=== PATIENT | female | born 1955 | race Caucasian/White ===

== ENCOUNTER 2019-08-17 08:30 | Inpatient (IN) ==
--- NOTE | 2019-08-02 10:15 | PAT Medication Instructions ---
Medication Instructions Date of Service August 02, 2019 Home Medications albuterol sulfate 2 puff INHALATION QID PRN allopurinol 300 mg PO QAM atorvastatin 10 mg PO Q2D chlorthalidone 50 mg PO QAM dulaglutide [Trulicity] 0.75 mg SUBCUT WK glipizide 10 mg PO QAM levothyroxine 200 mcg PO QAM lisinopril 5 mg PO QAM metoprolol succinate 50 mg PO QAM omeprazole 40 mg PO QAM theophylline [Lg-24] 200 mg PO QAM Continue as directed dulaglutide [Trulicity] 0.75 mg SUBCUT WK atorvastatin 10 mg PO Q2D DO NOT take the morning of surgery chlorthalidone 50 mg PO QAM glipizide 10 mg PO QAM lisinopril 5 mg PO QAM Take morning of surgery With a small sip of water, OTHERWISE NOTHING TO EAT OR DRINK AFTER MIDNIGHT: albuterol sulfate 2 puff INHALATION QID PRN (use if needed; please bring with you to hospital day of surgery if possible) allopurinol 300 mg PO QAM levothyroxine 200 mcg PO QAM metoprolol succinate 50 mg PO QAM omeprazole 40 mg PO QAM theophylline [Lg-24] 200 mg PO QAM Take evening before surgery albuterol sulfate 2 puff INHALATION QID PRN (if needed) Other Notes If you have any questions please call us at [phone] or [phone] or [phone] or [phone]
--- NOTE | 2019-08-02 13:24 | Anesthesiology Consultation ---
Date of Service August 02, 2019 Assessment & Plan (1) Encounter for pre-operative examination: Per PAT assessment on 08/01: Travel screen- Lives in [facility]. Only travel to [facility]. No known COVID-19 positive contacts. No history of COVID-19 testing. No current COVID-19 related symptoms. Per patient, surgeon has them scheduled for COVID-19 testing on 08/12 (surgeon-ordered preop protocol). Awaiting results. - Check [facility] AM DOS Chart Review Chart Review: Acceptable Risk for Surgery (pending COVID test) and Patient seen in Pre Admission Testing Teaching & Discussion Pre-Anesthesia Teaching/Discussion Notes: Instructed NPO after midnight before surgery,except medications with 15 cc of water. Medication instructions provided according to the PAT guidelines. History Surgery Operation Date: 08/17/19 08:50 Proposed Procedures p Right Total Knee Revision - Braydon Tejada MD Height/Weight Height: 5 ft 4.5 in Weight: 116 kg Allergies Allergy/AdvReac Type Severity Reaction Status Date / Time rofecoxib Allergy Severe leg Verified 08/02/19 13:33 swelling Cephalosporins Allergy Intermediate Unknown Verified 07/31/19 16:01 propoxyphene Allergy Mild hallucinati Verified 08/02/19 13:33 ons Medications Home Medications Medication Instructions Recorded Confirmed Last Taken albuterol sulfate 2 puff INHALATION QID PRN 07/31/19 07/31/19 Unknown allopurinol 300 mg PO QAM 07/31/19 07/31/19 Unknown atorvastatin 10 mg PO Q2D 07/31/19 07/31/19 Unknown chlorthalidone 50 mg PO QAM 07/31/19 07/31/19 Unknown dulaglutide [Trulicity] 1.5 mg SUBCUT WK 07/31/19 08/02/19 Unknown glipizide 10 mg PO QAM 07/31/19 07/31/19 Unknown levothyroxine 200 mcg PO QAM 07/31/19 07/31/19 Unknown lisinopril 5 mg PO QAM 07/31/19 07/31/19 Unknown metoprolol succinate 50 mg PO QAM 07/31/19 07/31/19 Unknown omeprazole 40 mg PO QAM 07/31/19 07/31/19 Unknown theophylline [Lg-24] 200 mg PO QAM 07/31/19 07/31/19 Unknown Past Medical History Medical History Asthma rare inhaler use/stable Cancer right breast s/p partial mastectomy (no chemo/no XRT) Diabetes mellitus, type 2 injectable + oral Esophageal ulcer hx years ago GERD (gastroesophageal reflux disease) controlled Gout Hyperlipidemia Hypertension Hypothyroidism Morbid obesity Osteoarthritis Exercise / Class Metabolic Activity III < 4 Walking/Shop/Light housework Past Surgical History Surgical History History of cardiac cath 2001-NO STENTS History of cholecystectomy History of colonoscopy History of dilatation and curettage X 2 History of esophagogastroduodenoscopy (EGD) History of mastectomy RIGHT PARTIAL 2008 History of total knee replacement R/L Past Anesthesia History No Hx of Anesthesia Complications and No Family Hx of Anesthesia Complications (except asthma related complications to surgery for mother) History of PONV No Hx of PONV and No Hx of Motion Sickness Social History Smoking Status: Never smoker Do You Dip or Chew Tobacco: No Hx Alcohol Use: No Hx Substance Use: No Review of Systems Refllux controlled. Patient denies chest pain, shortness of breath, cough, wheezing, palpitations. Physical Exam Vital Signs VITALS BP 126/78 P 84 TEMP 98.6 SP02 96%RA RESP 18 PHYSICAL Full neck and c-spine range of motion. Full TMJ range of motion. TMD 3.5 finger breaths Mallampati Score 1 Dentition: partial/several missing teeth on lower, implant on upper front right side, + cap Lungs: clear throughout to auscultation Cardiac: regular rate and rhythm, no murmurs noted Spine: normal Carotid arteries: negative bruit Extremities: no edema Testing Laboratory Results 08/02/19 13:57 08/02/19 13:58 PT 10.9 Seconds (9.0-12.0) 08/02/19 13:57 INR 1.0 (0.9-1.1) 08/02/19 13:57 APTT 27.1 Seconds (21.0-31.0) 08/02/19 13:57 Hemoglobin A1c 7.5 % (4.5-5.6) H 08/02/19 13:57 Blood Type A Positive 08/02/19 13:57 Antibody Screen NEGATIVE 08/02/19 13:57 Electrocardiogram Date: 08/02/19 NSR at 79bpm. Low voltage QRS. Cannot rule out anterior infarct (possible anterior infarct dating back to 09/16/14 EKG from [facility] scanned into [facility], patient had DSE 10/08/15 without inducible ischemia) Chest X-Ray Date: 08/02/19 The cardiomediastinal silhouette is unremarkable noting atherosclerotic calcification of the thoracic aorta. Chronic interstitial thickening is similar to previous. There is no pneumothorax. The skeletal structures are osteopenic. The bony thorax appears intact. Degenerative change is noted in the thoracic spine. IMPRESSION: No active disease in the chest. Stress Test Date: 10/08/15 Type: DSE The dobutamine stress echocardiographic examination is normal without ECG or ECHO evidence of inducible ischemia. No chest pain was reported with this test. 89% MPHR. EF 73%. Mild AV sclerosis.
--- NOTE | 2019-08-02 14:31 | XRay Report ---
TWO VIEW CHEST CLINICAL HISTORY: Preoperative examination. FINDINGS: PA and lateral chest radiographs are compared to study dated 08/05/2005. The cardiomediastina l silhouette is unremarkable noting atherosclerotic calcification of the thoracic aorta. Chronic inte rstitial thickening is similar to previous. There is no pneumothorax. The skeletal structures are ost eopenic. The bony thorax appears intact. Degenerative change is noted in the thoracic spine. IMPRESSION: No active disease in the chest. ACT 112: Negative or not required by law. Electronically signed by: Jaswinder John M.D. 08/02/2019 2:29 PM
[2019-08-02 14:52] LABS: Basophils # (auto) 0.01 K/uL (0-0.2); Basophils % (auto) 0.1 %; Eosinophils # (auto) 0.18 K/uL (0-0.5); Eosinophils % (auto) 2.1 %; Hematocrit (blood only) 40.5 % (37-47); Immature Granulocytes # (auto) 0.02 K/uL (0.00-0.02); Immature Granulocytes % (auto) 0.2 %; Lymphocytes # (auto) 2.25 K/uL (1.2-3.4); Lymphocytes % (auto) 26.1 %; Mean Corpuscular Hemoglobin 28.8 pg (25-34); Mean Corpuscular Hgb Conc 32.1 g/dL (32-36); Mean Corpuscular Volume 89.6 fL (80-100); Mean Platelet Volume 10.5 fL (7.4-10.4); Monocytes # (auto) 0.44 K/uL (0.11-0.59); Monocytes % (auto) 5.1 %; Neutrophils # (auto) 5.73 K/uL (1.4-6.5); Neutrophils % (auto) 66.4 %; Platelet Count 233 K/uL (130-400); RDW Coefficient of Variation 13.7 % (11.5-14.5); RDW Standard Deviation 44.6 fL (36.4-46.3); Red Blood Count 4.52 M/uL (4.2-5.4); White Blood Count 8.63 K/uL (4.8-10.8)
[2019-08-02 15:10] LABS: Partial Thromboplastin Time 27.1 Seconds (21.0-31.0); Prothrombin Time 10.9 Seconds (9.0-12.0)
[2019-08-02 15:21] LABS: Estimated Average Glucose 169 mg/dl; Hemoglobin A1C 7.5 % (4.5-5.6)
[2019-08-02 15:22] LABS: BUN Creatinine Ratio 27.3 (10-20); Calcium 9.5 mg/dl (8.5-10.1); Creatinine Clr Calc Pharmacy 69.4 ml/min; Est GFR (African American) 66.8; Est GFR (Non-African American) 57.7; Potassium 3.7 mmol/L (3.5-5.1)
[2019-08-02 15:26] LABS: C Reactive Protein 1.09 mg/dl (0-0.29)
--- NOTE | 2019-08-02 17:09 | Electrocardiogram Report ---
Test Reason : Blood Pressure : / mmHG Vent. Rate : 079 BPM Atrial Rate : 079 BPM P-R Int : 188 ms QRS Dur : 084 ms QT Int : 396 ms P-R-T Axes : 064 061 076 degrees QTc Int : 454 ms Normal sinus rhythm Low voltage QRS Cannot rule out Anterior infarct , age undetermined Abnormal ECG When compared with ECG of 05-AUG-2005 10:04, QRS voltage has decreased Minimal criteria for Anterior infarct are now Present Nonspecific T wave abnormality no longer evident in Inferior leads Confirmed by Elliott Martinez ([id number]) on 08/02/2019 5:09:29 PM Referred By: Braydon Tejada Confirmed By:Elliott Martinez
--- NOTE | 2019-08-10 14:05 | History and Physical Report ---
DATE OF ADMISSION: 08/17/2019 CHIEF COMPLAINT: Bilateral knee pain and discomfort, right side greater than left. HISTORY OF PRESENT ILLNESS: The patient is a 64-year-old female now 16 years out from a right knee replacement 14 years out from the left. She has done pretty well until about a year ago when she started having pain and discomfort in the right knee, more than the left. No known injuries. She had no fevers or signs of infection. Over the past several months, her pain has just gotten worse. We had actually scheduled for knee revision, but was canceled due to the COVID epidemic. Over the past several weeks, her pain has only gotten worse. She has started up pain. She has difficulty going up and down steps. A little bit more thigh discomfort than the tibia discomfort. Very minimal swelling. She has been through extensive conservative treatment without relief. X-rays suggest loosening and osteolysis and patient now presents for revision surgery. Of note, the patient's sed rate and C-reactive protein were just slightly elevated. We did aspirate her knee and it showed no signs of inflammation or inflammatory process. The lab results are still pending. PAST MEDICAL HISTORY: 1. Asthma. 2. Hypertension. 3. Gastroesophageal reflux disease. 4. Diabetes x10 years. 5. Obesity with BMI of 43. 6. Precancerous breast lesion. PAST SURGICAL HISTORY: Include: 1. Right total knee replacement done 09/13/2003. 2. Left knee replacement done on 08/13/2005. 3. Cholecystectomy. 4. Right partial breast mastectomy. ALLERGIES: PENICILLIN, CEPHALOSPORINS. EXACT REACTION IS UNCLEAR. SHE SAYS CEPHALOSPORINS CAUSE HER EYES TO BE YELLOW. CURRENT MEDICINES: Include: 1. Januvia. 2. Metformin. 3. Theophylline. 4. Metoprolol. 5. Allopurinol. 6. Lisinopril. 7. Chlorthalidone. 8. Levothyroxine. SOCIAL HISTORY: A 64-year-old female. She is . She is a retired teacher. She used to work at [employer]. Does not smoke or drink. FAMILY HISTORY: Noncontributory. REVIEW OF SYSTEMS: Significant for diabetes. Denies any chest pain or shortness of breath. No history of DVT or PE. No known bleeding problems. PHYSICAL EXAMINATION: GENERAL: Shows a pleasant, middle-aged female. Looks to be in pretty good health. HEENT: Benign. NECK: Supple, no lymphadenopathy. LUNGS: Clear to auscultation. HEART: Has a regular rate and rhythm. ABDOMEN: Soft, nontender, nondistended. EXTREMITIES: Grossly neurovascularly intact except as follows: Examination of both knees reveals the patient walks with a bit of a waddling gait. Examination of the right knee reveals a well-healed incision. She has a slight varus alignment to her knee. Very small if any detectable knee effusion. No warmth. Range of motion is 0 to about 110. She can do a straight leg raise. No varus or valgus instability. Examination of the left knee reveals well-healed incision. Neutral alignment. Minimal knee effusion. Range of motion is 0-120. No instability. X-RAYS: X-rays of both knees reveal bilateral left posterior stabilized total knee arthroplasties. There is significant osteolysis around the tibial tray medially and laterally in both knees. Certainly appears to be lucency around the femoral component on the lateral film on the right knee. Some degree of fragmentation of the patella. ASSESSMENT: A 64-year-old white female, 16 years out from right knee replacement, 14 years out from the left with bilateral knee pain and discomfort, mild swelling consistent with a polyethylene wear and likely aseptic loosening. We did get some labs and her sed rate were little bit elevated, so we did aspirate her knee which revealed fairly limited amounts of fluid, did not look inflammatory. The results of this are still pending. In light of this and her discomfort, I believe this is aseptic loosening with poly wear. We are going to proceed with a right total knee revision. The risks and benefits of right total knee revision were explained to the patient including but not limited to DVT, PE, , infection, neurological injury, vascular injury, bleeding problem, pain, limited range of motion, stiffness, failure to relieve symptoms, incomplete relief of symptoms, need for further surgery in future, fracture, leg length inequality, nerve palsy, persistent pain, incomplete relief of symptoms, need for revision surgery in the future. The patient understands and desires to proceed. Informed consent was obtained. She does have this ANCEF ALLERGY. We will likely give her vancomycin preoperatively. She knows to hold her lisinopril the morning of surgery and take the metoprolol.
[~2019-08-17 08:30] MED LIST: ACETAMINOPHEN 500 MG TAB PO SCH; BUPIVACAINE LIPOSOME/PF 266 MG, BUPIVACAINE/EPINEPHRINE 50 ML, SODIUM CHLORIDE 0.9% 30 ... INFIL SCH; FAMOTIDINE 20 MG TAB PO SCH; GABAPENTIN 300 MG CAP PO SCH; LR 500ML BOLUS, THEN 15ML/HR IV SCH; LR 60ML/HR IV SCH; METOCLOPRAMIDE HCL 10 MG TABLET PO SCH; TRANEXAMIC ACID 1,000 MG **IV Intra-op IV SCH; VANCOMYCIN HCL 1,750 MG in SODIUM CHLORIDE 0.9% 500 ML IV SCH
--- NOTE | 2019-08-17 08:50 | History & Physical Bridge Note ---
Date of Service August 17, 2019 History & Physical Bridge Note I have examined the patient, reviewed the History & Physical and in the interval since the performance of the History & Physical I have noted the following changes of clinical significance: no changes noted
[2019-08-17] MEDS ORDERED: BUPIVACAINE 0.5 % 5 MG/1 ML PF 10ML VIAL ONE (09:14)
[2019-08-17] MEDS ORDERED: BUPIVACAINE/EPINEPHRINE 0.25% 1:200,000 30 ML VIAL ONE ×2 (09:14→10:36)
[2019-08-17] MEDS ORDERED: HYDROmorphone INJ 2 MG/ML SYR/VIAL IV PRN (09:31)
[2019-08-17] MEDS ORDERED: ePHEDrine sulfate 50 MG/ML AMP IV PRN (09:31)
[2019-08-17] MEDS ORDERED: fentaNYL citrate 100 MCG/2 ML VIAL IV PRN (09:31)
[2019-08-17] MEDS ORDERED: ATROPINE SULFATE 0.1 MG/ML 10ML SYR IV PRN (09:31)
[2019-08-17] MEDS ORDERED: ONDANSETRON INJ 2 MG/ML 2 ML VIAL IV PRN ×2 (09:31→15:24)
[2019-08-17] MEDS ORDERED: MIDAZOLAM HCL 1 MG/ML 2ML VIAL ONE ×2 (09:55→12:52)
[2019-08-17] MEDS ORDERED: PROPOFOL IV EMULSION 10 MG/ML 20 ML VIAL IV ONE ×3 (09:57→13:15)
[2019-08-17] MEDS ORDERED: LIDOCAINE HCL 2% 2 ML VIAL/AMP(20MG/ML) INFIL ONE (09:57)
[2019-08-17] MEDS ORDERED: BACITRACIN INJ 50,000 UNIT VIAL ONE ×2 (10:36→13:17)
[2019-08-17] MEDS ORDERED: SODIUM CHLORIDE 0.9% PF 50 ML VIAL ONE (10:36)
[2019-08-17] MEDS ORDERED: BUPIVACAINE LIPOSOME 1.3% 266 MG/20 ML VIAL ONE (10:36)
[2019-08-17] MEDS ORDERED: VANCOMYCIN HCL 1000MG/20ML VIAL ONE (10:37)
--- NOTE | 2019-08-17 13:57 | Post Operative Brief Note ---
PG Immediate Post Op with CF Date of Surgery August 17, 2019 Pre & Post Diagnosis Operation Date: 08/17/19 10:40 Pre-Op Diagnosis: Right Total Knee-- Aseptic Loosening with Polyethylene Wear Post-Op Diagnosis: Right Total Knee-- Extensive Osteolysis and Polyethylene Wear I identified the patient and participated in the time-out.: Yes Procedure Operation Date: 08/17/19 10:40 <No data on this case meets the specified criteria> Surgeon Braydon Tejada MD Tool Filer Hi, PAC Estimated Blood Loss 100 Findings Consistent with Post-Op Diagnosis Fluids 1000 cc Specimens Specimen Description: Culture #1 right knee synovial fluid aerobic, anerobic, gram stain sent out 1135 A. right knee synovium Drains Garcia Catheter Anesthesia Type Spinal MAC Disposition Accompanied Patient To Recovery: No Disposition: Recovery Room
--- NOTE | 2019-08-17 14:24 | Operative Report ---
Post Operative Report Pre & Post Diagnosis Operation Date: 08/17/19 10:40 Pre-Op Diagnosis: Right Total Knee-- Aseptic Loosening with Polyethylene Wear Post-Op Diagnosis: Right Total Knee-- Extensive Osteolysis with Polyethylene Wear I identified the patient and participated in the time-out.: Yes Procedure Operation Date: 08/17/19 10:40 Actual Procedures p Right Total Knee Revision(Right) - Braydon Tejada MD Surgeon Braydon Tejada MD Wall Crane Operator Hi, PAC Estimated Blood Loss 100 Findings Consistent with Post-Op Diagnosis Operative findings revealed extensive polyethylene wear of the medial aspect of the tibial plateau polyethylene. She had extensive synovitis. She had extensive ostial lysis of the distal lateral femoral condyle as well as the proximal tibia. All implants appear to be still quite secure. The patella component was well preserved with fairly minimal wear. Moderate knee joint effusion. Fluids 1000 cc. Specimens Right knee synovium sent for pathology. Right knee joint fluid sent for stat Gram stain and aerobic and anaerobic culture. Gram stain showed rare WBCs with no organisms. Drains None. Anesthesia Type Spinal MAC Complications none Disposition Accompanied Patient To Recovery: No Disposition: Recovery Room Indications Patient is a 64-year-old female now 16 years out from her right knee replacement 14 years out from the left. Over the past year she is developed increased pain discomfort and swelling in her right knee. She failed all conservative care. X-rays suggested maybe some tibial loosening with pretty extensive ostial lysis of the proximal tibia. Patient failed conservative care. She did have an infectious work-up which revealed a mildly elevated sed rate and C-reactive protein. We did aspirate her knee which showed a benign effusion and culture was no growth. Description of Procedure Operative implants consist of: 1. Biomet Vanguard 360 size 62.5 right posterior by femoral component with a 5 mm offset, 5 mm distal lateral and medial augments, and an 80 x 15 mm stem. 2. Biomet Vanguard 360 size 63 tibial tray with a 2 and half millimeter offset, small cruciate wing, and a 12 x 80 stem. 3. 20 mm posterior stabilized polyethylene insert. Patient was taken to the operating room identified and placed on the operating table supine position protectors were properly padded. IV antibiotics were tried by anesthesia team. A spinal anesthetic and abductor canal block had provided holding area. A Garcia catheter was placed in sterile fashion. Right thigh tip was then placed in the right lower extremities and prepped and draped in usual sterile fashion. The right leg was elevated exsanguinated with use of an Esmarch and turns placed at 300 mmHg. An anterior approach to the right knee was then performed to longitudinal incision centered over the patella. I did use a previous incision and extended this slightly proximally and distally about a centimeter in each direction. Sharp dissection was gone through subcutaneous tissue down the extensor mechanism. A medial parapatellar arthrotomy incision was made. The joint fluid appeared benign. We sent this off for a stat Gram stain and aerobic and anaerobic culture. The Gram stain showed rare WBCs and no organisms. There is no clinical signs of infection. There was extensive synovitis. A complete synovectomy of the suprapatellar pouch and medial lateral gutters was then performed. We sent the synovium off for pathology as well. The patella was then subluxated laterally and the knee was flexed. The tibial polyethylene was removed. Attention drawn the femur. The edges of the femoral component were defined. The femoral component was not loose. I did use a small sawblade to break the interface between the distal femur and the femoral implant. We use a stacked osteotome technique to remove the femoral component without difficulty. Fairly minimal bone loss. Attention drawn the tibia. The tibia was exposed. The interfaces were defined. The saw was then used to disrupt the interface and the tibial tray was removed using a stacked osteotome technique. I then spent quite a bit of time cracking the cement from the proximal tibia and removing it. I then examined the patella and the patella. Well fixed and there was fairly minimal wear so we elected to leave this. Attention drawn the tibia. The proximal tibia was entered with the canal finder. I reamed up to a size 12. We used this for the cutting guide and I cut the proximal tibia to remove about 2 mm of bone from the medial side. The tibia was sized to a size 63. We then prepared the tibia for a 2 and half millimeter offset stem with a 12 x 80 stem. The implant was assembled and placed in the left in place. It fit quite nicely. Attention drawn the femur. The femur was entered with the canal finder. I then reamed up to a 15. I then cut the distal femur to take an additional film 5 mm of bone off the lateral side was cut it just slightly short of flush with the medial side. Described the reasonable bony surface to place implants. There was extensive ostial lysis of the posterior lateral femoral condyle. I then sized the femur to a 62.5. The AP cutting block was pinned parallel to the epicondylar axis which a 5 mm offset guide. The anterior cut, anterior chamfer, posterior cut, posterior chamfer cuts were made. The implant was then assembled and placed in the box cut was made. The trocar component was placed. I then trialed the knee. The knee was slightly more lax in extension and flexion so we did place 5 mm augments medially and laterally to equalize the flexion extension gaps. Having done this, the 20 mm polyethylene insert fit most appropriately. Patella tracked nicely. We elect to place these implants. All trial implants were removed. I irrigated extensively. We got rid of all the fibrous interfaces off the distal femur as well as the proximal tibia. I did inject locally with 100 cc of combination of 20 cc of Exparel, 30 cc normal saline, 50 cc of quarter percent Marcaine with epinephrine. The implants were assembled to the back table. I then mixed a double batch of Palacos G cement with the 2 g of vancomycin. The femoral implant was placed first followed by the tibial implant cementing to the metaphysis and the surface only. All extraneous cement was removed. A 12 mm insert was placed and the knee was brought out into full extension until cement hardened. Under a final cement check was then performed. The tourniquet was let down for turn time 120 minutes. Hemostasis assured use electrocautery. The wounds once again irrigated. The extensor mechanism were closed with combination 1 PDS suture #1 Vicryl suture in [id number] fashion. The extensor mechanism checked found to be intact the subcutaneous tissue then closed with 2 Dexon suture in a buried interrupted fashion skin was closed skin real. Leg was then cleaned and dried a sterile dressing composed Xeroform, 4 x 4's, sterile cast padding, Domenic bandage were applied. Patient then transferred to the recovery room in stable condition. Patient tolerated procedure well no complications. I attest to the content of the Intraoperative Record and any orders documented therein. Any exceptions are noted below.
--- NOTE | 2019-08-17 14:41 | XRay Report ---
XR knee RT 1 or 2V routine CLINICAL HISTORY: Surgical Post Op COMPARISON: None DISCUSSION: Anatomic alignment post total right knee revision type arthroplasty. Longstem prosthetics are present. Could contact between prosthetic and underlying bone. Expected postoperative soft tissu e change. IMPRESSION: Anatomic alignment post total right knee arthroplasty/revision arthroplasty. ACT 112: Negative or not required by law. The above report was generated using voice recognition software. It may contain grammatical, syntax or spelling errors. Electronically signed by: Yuval Greenfield M.D. 08/17/2019 2:39 PM
[2019-08-17] MEDS ORDERED: GLUCOSE 10 TABS/TUBE PO PRN (15:24)
[2019-08-17] MEDS ORDERED: NALOXONE HCL 0.4 MG/1 ML VIAL/CARP IV PRN (15:24)
[2019-08-17] MEDS ORDERED: GLUCOSE 40% GEL 15 GM TUBE PO PRN (15:24)
[2019-08-17] MEDS ORDERED: NON-FORMULARY MEDICATION (Dulaglutide [Trulicity] 1.5 MG) SQ SCH (15:24)
[2019-08-17] MEDS ORDERED: GLUCAGON FOR INJ 1 MG VIAL SQ PRN (15:24)
[2019-08-17] MEDS ORDERED: CARBOHYDRATES FOR HYPOGLYCEMIA PO PRN (15:24)
[2019-08-17] MEDS ORDERED: OXYCODONE HCL IR 5 MG TAB (IMMEDIATE RELEASE) PO PRN (15:24)
[2019-08-17] MEDS ORDERED: MAGNESIUM HYDROXIDE SUSP 30 ML UDC PO PRN (15:24)
[2019-08-17] MEDS ORDERED: VANCOMYCIN CONSULT ACTIVE PRN (15:24)
[2019-08-17] MEDS ORDERED: METOCLOPRAMIDE HCL INJ 5 MG/ML 2 ML VIAL IV PRN (15:24)
[2019-08-17] MEDS ORDERED: ALUMINUM/MAGNESIUM SUSP 30 ML UDC PO PRN (15:24)
[2019-08-17] MEDS ORDERED: bisacodyL 10 MG SUPP PR PRN (15:24)
[2019-08-17] MEDS ORDERED: HYDROmorphone INJ 0.5 MG/0.5 ML SYR IV PRN (15:24)
[2019-08-17] MEDS ORDERED: DEXTROSE 50% 50 ML SYRINGE IV PRN (15:24)
[2019-08-17] MEDS ORDERED: ALBUTEROL HFA 8 GM INHALER INH PRN (15:24)
[2019-08-17] MEDS ORDERED: PHARMACY GLYCEMIC MGMT CONSULT PRN (15:28)
--- NOTE | 2019-08-17 15:30 | Anesthesiology Progress Note ---
Date of Service August 17, 2019 Anesthesia Post Procedure Vital Signs Vital Signs: Temp Pulse Pulse Resp BP BP Pulse Ox 08/17/19 15:16 36.5 C 78 16 154/85 H 100 08/17/19 14:45 36.4 C L 78 12 154/84 H 100 08/17/19 14:35 78 20 154/91 H 100 08/17/19 14:25 79 21 151/78 H 100 08/17/19 14:15 80 12 147/75 H 100 08/17/19 14:05 36.3 C L 83 12 148/74 H 100 08/17/19 10:00 64 16 136/81 97 08/17/19 09:39 37 C 79 20 171/90 H 97 Pain Intensity Right Knee: Pain Intensity: 2 Transfer of Care Handoff Completed per policy Notes Mental Status: alert / awake / arousable and participated in evaluation Patient Amnestic to Procedure: Yes Nausea / Vomiting: adequately controlled Pain: adequately controlled Airway Patency, RR, SpO2: stable & adequate BP & HR: stable & adequate Hydration State: stable & adequate Anesthetic Complications: no major complications apparent and Pt Satisfied with anesthetic care
[2019-08-17] MEDS: SODIUM CHLORIDE 0.9% 1000ML 1,000 ML IV SCH ×2 (15:36→21:30)
[2019-08-17] MEDS: ACETAMINOPHEN 500 MG TAB PO SCH (17:33)
[2019-08-17] MEDS: KETOROLAC 30 MG/ML VIAL IV SCH (17:33)
[2019-08-17] MEDS: INSULIN ASPART 100 UNITS/ML 3 ML PEN SC SCH ×2 (18:11→21:29)
[2019-08-17] MEDS: ASCORBIC ACID 500 MG TAB PO SCH (18:13)
[2019-08-17] MEDS: FERROUS GLUCONATE 324 MG TAB PO SCH (18:13)
[2019-08-17] MEDS ORDERED: TRANEXAMIC ACID / 0.7% NACL 1,000 MG/100 ML BAG IV SCH (20:15)
[2019-08-17] MEDS ORDERED: VANCOMYCIN HCL 1,750 MG in SODIUM CHLORIDE 0.9% 500 ML IV SCH (21:00)
[2019-08-17] MEDS: SENNA 8.6 MG TAB PO SCH (21:29)
[2019-08-17] MEDS: DOCUSATE SODIUM 100 MG CAP PO SCH (21:29)
[2019-08-17] MEDS: ASPIRIN 81 MG ECTAB PO SCH (21:29)
[2019-08-18] MEDS: LEVOTHYROXINE SODIUM 200 MCG TABLET PO SCH (04:50)
[2019-08-18] MEDS: KETOROLAC 30 MG/ML VIAL IV SCH ×2 (04:50)
[2019-08-18] MEDS: ACETAMINOPHEN 500 MG TAB PO SCH ×3 (04:50→22:16)
[2019-08-18 07:22] LABS: Hematocrit (blood only) 37.1 % (37-47); Hemoglobin 11.6 g/dL (12.0-16.0); Mean Corpuscular Hemoglobin 28.5 pg (25-34); Mean Corpuscular Hgb Conc 31.3 g/dL (32-36); Mean Corpuscular Volume 91.2 fL (80-100); Mean Platelet Volume 10.1 fL (7.4-10.4); Platelet Count 175 K/uL (130-400); RDW Coefficient of Variation 13.5 % (11.5-14.5); RDW Standard Deviation 44.3 fL (36.4-46.3); Red Blood Count 4.07 M/uL (4.2-5.4); White Blood Count 8.66 K/uL (4.8-10.8)
[2019-08-18 07:49] LABS: BUN Creatinine Ratio 18.2 (10-20); Calcium 8.2 mg/dl (8.5-10.1); Creatinine Clr Calc Pharmacy 53.8 ml/min; Est GFR (African American) 49.9; Potassium 3.9 mmol/L (3.5-5.1)
[2019-08-18] MEDS: THEOPHYLLINE 400 MG EXTENDED REL TAB PO SCH (08:56)
[2019-08-18] MEDS: MULTIVITAMIN TAB PO SCH (08:57)
[2019-08-18] MEDS: DOCUSATE SODIUM 100 MG CAP PO SCH ×2 (08:58→20:21)
[2019-08-18] MEDS: PANTOprazole 40 MG TAB PO SCH (08:58)
[2019-08-18] MEDS: ASPIRIN 81 MG ECTAB PO SCH ×2 (08:58→20:23)
[2019-08-18] MEDS: lisinopriL 5 MG TAB PO SCH (08:59)
[2019-08-18] MEDS: allopurinoL 300 MG TAB PO SCH (09:00)
[2019-08-18] MEDS ORDERED: ATORVASTATIN 10 MG TAB PO SCH (09:00)
[2019-08-18] MEDS ORDERED: NON-FORMULARY MEDICATION (Glipizide 10 MG) PO SCH (09:00)
[2019-08-18] MEDS: FERROUS GLUCONATE 324 MG TAB PO SCH ×2 (09:00→18:13)
[2019-08-18] MEDS: ASCORBIC ACID 500 MG TAB PO SCH ×2 (09:01→18:13)
[2019-08-18] MEDS: METOPROLOL SUCC 50MG EXT REL TAB PO SCH (09:02)
[2019-08-18] MEDS: CHLORTHALIDONE 25 MG TAB PO SCH (09:02)
[2019-08-18] MEDS: INSULIN ASPART 100 UNITS/ML 3 ML PEN SC SCH ×4 (09:03→21:12)
--- NOTE | 2019-08-18 09:20 | Progress Notes ---
DATE: 08/18/2019 SUBJECTIVE: A 64-year-old white female postop day 1 from a right revision knee replacement. She is doing pretty well this morning. Some pain, but manageable. No chest pain or shortness of breath. Not feeling dizzy or lightheaded. OBJECTIVE: VITAL SIGNS: Temperature 36.7. Vital signs stable. GENERAL: Physical examination shows a pleasant, middle-aged female. She is sitting on bed, looks reasonably comfortable. EXTREMITIES: Examination of the right leg reveals the dressing to be clean, dry and intact. Leg is well aligned. She can dorsiflex and plantarflex her foot appropriately. NEUROLOGIC: She is neurologically intact. LABORATORY DATA: Hemoglobin 11.6. Hematocrit 37.1. Electrolytes are stable. Creatinine just slightly elevated at 1.30. CULTURE RESULTS: Culture results are pending. ASSESSMENT: A 64-year-old white female postop day 1 from right revision knee replacement, doing pretty well. Pain seems to be controlled. She is neurologically intact. Creatinine is just slightly elevated and we will follow this. We are going to decrease her Toradol dose. PLAN: 1. DVT prophylaxis include thigh-high TEDs, SCDs and aspirin twice a day. 2. PT/OT. Weight bear as tolerated. Right total knee protocol. 3. Pain control, doing pretty well with current pain regimen. We are going to decrease her Toradol dose and we will follow her creatinine. 4. Disposition: She is planning to be discharged home with some home health once adequately recovered and medically stable.
--- NOTE | 2019-08-18 10:04 | Pharmacy Report ---
Pharmacy Glycemic Short Note 2 - Date of Service August 18, 2019 - Glycemic Short BSG Results (Last 24 hours): 08/17/19 08/17/19 08/17/19 14:12 17:07 20:28 Glucose POC Glucose 116 H 107 H 149 H 08/18/19 08/18/19 07:05 08:13 Glucose 139 H POC Glucose 143 H OUTPATIENT ANTIDIABETIC REGIMEN: * glipizide 10 mg qAM * Trulicity 1.5 mg SQ once weekly ASSESSMENT: * Alejandra is a 64 yo T2DM POD #1 revision of right knee replacement * Home anti-diabetic medications have been placed on hold. Patient will be managed using SQ insulin during inpatient stay: * Fasting BSG near goal without basal insulin. Reassess need for basal on 08/18. * Post prandial BSGs also at/near goal (she received a total of 5 units of Novolog on 08/16) PLAN FOR INPATIENT GLYCEMIC CONTROL: * Hold outpatient oral diabetes medications * Basal insulin * Start only if HS BSG is 180 mg/dL or above: Lantus 13 units SQ x 1 * Bolus insulin * NovoLog per scale ACHS or Q6hrs while NPO * Goal Range: Low 110 mg/dL - High 140 mg/dL * Correction Factor: 20 mg/dL/unit * Nutritional / Prandial insulin per carb ratio of 1 unit per 6 grams CHO consumed PLAN FOR DISCHARGE: * A1c = 7.5% (08/02/19). I suspect goal A1c for patient is 7% or less. * Continue monitoring and regimen adjustment per outpatient provider.
[2019-08-18] MEDS: KETOROLAC TROMETHAMINE 15 MG/ML VIAL IV SCH ×2 (13:28→18:11)
[2019-08-18] MEDS: SENNA 8.6 MG TAB PO SCH (20:22)
[2019-08-18] MEDS ORDERED: LANTUS PER UNIT CHARGE SQ SCH (21:00)
[2019-08-19] MEDS: KETOROLAC TROMETHAMINE 15 MG/ML VIAL IV SCH ×2 (00:06→05:48)
[2019-08-19] MEDS: LEVOTHYROXINE SODIUM 200 MCG TABLET PO SCH (05:48)
[2019-08-19] MEDS: ACETAMINOPHEN 500 MG TAB PO SCH (05:48)
[2019-08-19 07:06] LABS: BUN Creatinine Ratio 19.1 (10-20); Calcium 8.7 mg/dl (8.5-10.1); Creatinine Clr Calc Pharmacy 57.3 ml/min; Est GFR (African American) 53.8; Est GFR (Non-African American) 46.5; Potassium 3.6 mmol/L (3.5-5.1)
--- NOTE | 2019-08-19 08:20 | Progress Notes ---
DATE: 08/19/2019 SUBJECTIVE: A 64-year-old white female postop day 2 from a right revision knee replacement. She is doing well. Pain is controlled. Therapy has gone well. No chest pain or shortness of breath. Not feeling dizzy or lightheaded. OBJECTIVE: VITAL SIGNS: Temperature 36.6. Vital signs are stable. GENERAL: Shows a pleasant, middle-aged female. She is sitting up in bed, looks pretty comfortable. EXTREMITIES: Examination of the right leg reveals the leg to be well aligned. Dressing is clean, dry and intact. Thigh is soft and supple. She is neurologically intact. Not a lot of swelling. LABORATORY DATA: Creatinine is improved at 1.22. ASSESSMENT: A 64-year-old female postoperative day 2 from right knee replacement, doing well. Pain is controlled. Therapy has gone well. Creatinine was a bit elevated, but improved this morning. PLAN: 1. DVT prophylaxis including thigh-high TEDs, SCDs, and aspirin twice a day. 2. PT/OT. Weight bear as tolerated. Right total knee protocol. 3. Pain control, doing well with current pain regimen. 4. Elevated creatinine. Creatinine is improved today. We will discharge her holding all of the additional NSAIDs. 5. Disposition: Plan to discharge her home with some home health later today.
[2019-08-19] MEDS: CHLORTHALIDONE 25 MG TAB PO SCH (09:14)
[2019-08-19] MEDS: DOCUSATE SODIUM 100 MG CAP PO SCH (09:15)
[2019-08-19] MEDS: METOPROLOL SUCC 50MG EXT REL TAB PO SCH (09:16)
[2019-08-19] MEDS: lisinopriL 5 MG TAB PO SCH (09:16)
[2019-08-19] MEDS: MULTIVITAMIN TAB PO SCH (09:16)
[2019-08-19] MEDS: THEOPHYLLINE 400 MG EXTENDED REL TAB PO SCH (09:16)
[2019-08-19] MEDS: PANTOprazole 40 MG TAB PO SCH (09:16)
[2019-08-19] MEDS: ASCORBIC ACID 500 MG TAB PO SCH (09:17)
[2019-08-19] MEDS: ASPIRIN 81 MG ECTAB PO SCH (09:17)
[2019-08-19] MEDS: allopurinoL 300 MG TAB PO SCH (09:17)
[2019-08-19] MEDS: FERROUS GLUCONATE 324 MG TAB PO SCH (09:17)
[2019-08-19] MEDS: INSULIN ASPART 100 UNITS/ML 3 ML PEN SC SCH (09:18)
--- NOTE | 2019-08-24 15:57 | Discharge Summary ---
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 She tolerated procedure well and there were no complications. She was transferred to the PACU postoperatively and later to the orthopedic for further care. She was given vancomycin for antibiotic prophylaxis. She was given DEN stockings, SCDs, and aspirin for DVT prophylaxis. Her hemoglobin, hematocrit, and vital signs were monitored during hospital stay remained stable. She not requiring blood transfusions. On postoperative day 2 she is tolerating a regular diet, pain was controlled with oral pain medicine, she is participating in physical therapy. On postop day 2 she is discharged home set up with home health services. She is given printed discharge instructions as well as new prescriptions for extra strength Tylenol, aspirin, oxycodone and iron supplement. Continue her home medications continue physical therapy. She is weightbearing as tolerated. Continue DEN stockings. 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
== END 2019-08-19 12:39 | disposition home health service (06) | DRG 467 ==
LOC: ASU 08:30 → 3E 14:11